=== PATIENT | male | born 1960 | race Caucasian/White ===

== ENCOUNTER 2017-09-16 13:02 | Emergency (ER) | payer BC, OTHER ==
[2017-09-16 13:10] VITALS: BP 137/83; PULSE 94; TEMP 99.3; BMI 42.2
--- NOTE | 2017-09-16 13:47 | PDOC ---
History of Present Illness - General Chief Complaint: Cold Symptoms Stated Complaint: COLD Time Seen by Provider: 09/16/17 13:06 - History of Present Illness Initial Comments: 09/16/17 16:30 Chief complaint: Congestion, cough History of present illness: For several days the patient has had nasal congestion, sore throat, and cough. Subjective sensation of fever but did not take his temperature. He occasionally coughs up yellowish or brownish sputum. Review of systems: No chest pain, shortness of breath, abdominal pain, nausea, vomiting, diarrhea, visual or focal neurologic symptoms, unsteadiness of gait, urinary tract symptoms. Past medical history: Van-xdzklcz-pnkmuqxqp diabetes for approximately 10 years , sugars controlled in the 100-200 range on oral medications, no diabetic complications known. Asthma, maintained on home nebulizer and steroid/ bronchodilator polyps. No recent exacerbations. No recent wheezing. Recurrent sinusitis, prior sinus surgery. 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 Heavy smoker until approximately one year ago, when he quit. Occasional social alcohol. No drugs Family history: Reviewed and noncontributory including pulmonary disease, early coronary artery disease, metabolic disease including diabetes, and cancer Physical exam: Alert oriented 3 moderately obese no acute distress cooperative Temperature 99.3, remainder vital signs normal HEENT: Marked nasal congestion, mild tenderness over the ethmoid sinuses, ears clear, throat mildly injected without exudate swelling or mass Neck supple without bruit mass or nodes Chest clear with full breath sounds throughout bilaterally, no wheezes rales or rhonchi. No tachypnea or dyspnea CV S1 and S2 distant without murmur rub or gallop pulses full and symmetric no JVD or edema Abdomen soft nontender without mass or organomegaly no CVAT Extremities no CCE Skin clear, no rash, adequate turgor and wet mucous membranes Neurological intact Impression: Recurrent sinusitis. No sign of pneumonia or bronchitis. Nontoxic in appearance Plan: Antibiotics and decongestant. Rest, stay out of the cold, and follow-up with symptoms progress or there is no improvement. 3 days. Fully ambulatory and in no significant pain or other distress upon discharge with his . Past History - Past Medical History Allergies/Adverse Reactions: Allergies Allergy/AdvReac Type Severity Reaction Status Date / Time Penicillins Allergy Verified 09/16/17 13:03 DUST MITES Allergy Uncoded 09/16/17 13:03 ROACHES Allergy Uncoded 09/16/17 13:03 Home Medications: Ambulatory Orders Aspirin 81 mg PO DAILY 01/05/13 Cefuroxime Axetil [Ceftin -] 500 mg PO Q12H #14 tablet 09/16/17 Guaifenesin AC [Robitussin-AC] 1 - 2 tsp PO TID PRN #90 ml MDD 6 09/16/17 Anemia: No Asthma: Yes Cancer: No Cardiac Disorders: No CVA: No COPD: No CHF: No DVT: No Dementia: No Diabetes: Yes GI Disorders: No Disorders: No HTN: Yes Hypercholesterolemia: Yes Liver Disease: No Seizures: No Thyroid Disease: No - Surgical History Appendectomy: Yes Orthopedic Surgery: Yes (knee arthroscopy) - Suicide/Smoking/Psychosocial Hx Smoking Status: No Smoking History: Former smoker Have you smoked in the past 12 months: No Number of Cigarettes Smoked Daily: 40 Information on smoking cessation initiated: No 'Breaking Loose' booklet given: 11/11/12 Hx Alcohol Use: No Drug/Substance Use Hx: No Substance Use Type: None Hx Substance Use Treatment: No *Physical Exam - Vital Signs Last Vital Signs Temp Pulse Resp BP Pulse Ox 99.3 F 94 H 20 137/83 96 09/16/17 13:02 09/16/17 13:02 09/16/17 13:02 09/16/17 13:02 09/16/17 13:02 *DC/Admit/Observation/Transfer Diagnosis at time of Disposition: Sinusitis Qualifiers: Sinusitis location: unspecified location Chronicity: acute Recurrence: recurrent Qualified Code(s): J01.91 - Acute recurrent sinusitis, unspecified - Discharge Dispostion Disposition: HOME Condition at time of disposition: Stable Admit: No - Prescriptions Prescriptions: Cefuroxime Axetil [Ceftin -] 500 mg PO Q12H #14 tablet Guaifenesin AC [Robitussin-AC] 1 - 2 tsp PO TID PRN #90 ml MDD 6 PRN Reason: Cough - Referrals Referrals: Maikol Mujica MD [Staff Physician] - - Patient Instructions Printed Discharge Instructions: DI for Sinusitis - Post Discharge Activity Forms/Work/School Notes: Back to Work
== END 2017-09-16 13:54 | disposition home or self-care (01) ==
LOC: FER 13:02
DX: J01.91 Acute recurrent sinusitis, unspecified (principal); I10 Essential (primary) hypertension; E11.9 Type 2 diabetes mellitus without complications; E78.00 Pure hypercholesterolemia, unspecified; J45.909 Unspecified asthma, uncomplicated; Z79.82 Long term (current) use of aspirin; Z79.84 Long term (current) use of oral hypoglycemic drugs; Z88.0 Allergy status to penicillin; Z91.048 Other nonmedicinal substance allergy status; Z87.891 Personal history of nicotine dependence
CPT/HCPCS: 99282-25

== ENCOUNTER 2018-09-15 10:59 | Emergency (ER) | payer BC, OTHER ==
[2018-09-15 11:05] VITALS: TEMP 98.4; BMI 40.2
--- NOTE | 2018-09-15 11:17 | PDOC ---
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 He sony his left lower back as well. He has pain in the left sacrum and left hip, no midline pain, and initially had pain in his right knee but this has resolved. Review of systems: Denies falling. Denies pain or injury to the head neck chest abdomen or other extremities. Remainder systems reviewed and negative Past medical history: Yel-xbtpoje-shkjjmgcx diabetes, elevated cholesterol, bicuspid aortic valve with small aneurysm of the aorta. Social/family history reviewed and noncontributory Physical exam: Alert and oriented well-developed well-nourished no acute distress cheerful and cooperative. He is ambulating well without impairment Afebrile, vital signs stable Head atraumatic. PERRLA. Fundi benign. ENT clear Neck without tenderness or deformity, full range of motion without pain Chest clear bilaterally. No rib cage tenderness or deformity CV regular without murmur rub or gallop pulses full and symmetric no JVD or edema no bruits Abdomen soft nontender without mass or organomegaly. No hernias. Extremities: Full range of motion of both hips. No visible or palpable trauma or limited range of motion to either lower extremity. Pulses full and symmetric. No distal sensory or motor deficits. Mild tenderness over the left sacrum and iliac crest without palpable deformity , swelling, erythema, heat, or other sign of inflammation Neurological C2 to 12 intact. Strength full and symmetric. No focal sensory or motor deficits. Gait stable and unimpaired Impression: Probable low back strain, left sacral region, rule out injury to left hip Plan: X-ray of hip, symptomatic treatment, rest, and follow-up if pain persists or other symptoms develop. Past History - Past Medical History Allergies/Adverse Reactions: Allergies Allergy/AdvReac Type Severity Reaction Status Date / Time Penicillins Allergy Verified 09/15/18 11:09 pramipexole [From Mirapex] AdvReac Intermediate Swelling Verified 09/15/18 11:09 DUST MITES Allergy Uncoded 09/15/18 11:09 ROACHES Allergy Uncoded 09/15/18 11:09 Home Medications: Ambulatory Orders Aspirin 81 mg PO DAILY 01/05/13 Albuterol 0.083% Nebulizer Mona [Ventolin 0.083% Nebulizer Soln -] 1 neb NEB PRN PRN 09/15/18 Metoprolol Tartrate 25 mg PO DAILY 09/15/18 Tiotropium [place] [Spiriva] 1 inh PO BID 09/15/18 Topiramate 75 mg PO BID 09/15/18 Vasepa 0 mg PO BID 09/15/18 traMADol HCL [Ultram -] 50 mg PO Q6H PRN #15 tablet MDD 4 09/15/18 Anemia: No Asthma: Yes Cancer: No Cardiac Disorders: No CVA: No COPD: No CHF: No DVT: No Dementia: No Diabetes: Yes GI Disorders: No Disorders: No HTN: Yes Hypercholesterolemia: Yes Liver Disease: No Seizures: Yes Thyroid Disease: No - Surgical History Appendectomy: Yes Orthopedic Surgery: Yes (knee arthroscopy) - Suicide/Smoking/Psychosocial Hx Smoking Status: No Smoking History: Former smoker Have you smoked in the past 12 months: No Number of Cigarettes Smoked Daily: 40 If you are a former smoker, when did you quit?: 2013 Information on smoking cessation initiated: No 'Breaking Loose' booklet given: 11/11/12 Hx Alcohol Use: No Drug/Substance Use Hx: No Substance Use Type: None Hx Substance Use Treatment: No *Physical Exam - Vital Signs Last Vital Signs Temp Pulse Resp BP Pulse Ox 98.4 F 79 16 124/82 98 09/15/18 11:00 09/15/18 11:00 09/15/18 11:00 09/15/18 11:00 09/15/18 11:00 Medical Decision Making - Medical Decision Making 09/15/18 12:52 X-ray negative Patient much improved with Toradol. More mobile, ambulating well Rest, heat, and continue medication. Follow-up if no improvement. Fully ambulatory and in no significant pain or other distress upon discharge with to follow-up as directed *DC/Admit/Observation/Transfer Diagnosis at time of Disposition: Lumbosacral strain Qualifiers: Encounter type: initial encounter Qualified Code(s): S39.012A - Strain of muscle, fascia and tendon of lower back, initial encounter - Discharge Dispostion Disposition: HOME Condition at time of disposition: Improved Decision to Admit order: No - Prescriptions Prescriptions: traMADol HCL [Ultram -] 50 mg PO Q6H PRN #15 tablet MDD 4 PRN Reason: Severe Pain - Referrals Referrals: Luis Fragoso MD [Staff Physician] - 1 week - Patient Instructions Printed Discharge Instructions: DI for Back Strain or Sprain Additional Instructions: Rest, heat, medication as directed. See Back Specialist if pain persists for reevaluation and further treatment 1 week. Avoid the sitting position is this will aggravate pain and spasm. - Post Discharge Activity Forms/Work/School Notes: Back to Work
[2018-09-15] MEDS ORDERED: KETOROLAC TROMETHAMINE 60 MG/2 ML VIAL IM ONE (11:36)
[2018-09-15] MEDS ORDERED: CYCLOBENZAPRINE HCL 10 MG TABLET (FP) PO ONE (11:37)
[2018-09-15] MEDS ORDERED: KETOROLAC TROMETHAMINE 60 MG/2 ML VIAL ONE (11:40)
[2018-09-15] MEDS ORDERED: CYCLOBENZAPRINE HCL 10 MG TABLET (FP) ONE (11:41)
[2018-09-15 13:19] VITALS: BP 115/73; PULSE 72
== END 2018-09-15 13:23 | disposition home or self-care (01) ==
LOC: FER 10:59
PROC: 3E0233Z Introduction of Anti-inflammatory into Muscle, Percutaneous Approach (ICD-10-PCS; principal; 2018-09-15)
DX: R05 Cough (principal); S39.012A Strain of muscle, fascia and tendon of lower back, initial encounter; X58.XXXA Exposure to other specified factors, initial encounter; Y93.89 Activity, other specified; Y92.524 Gas station as the place of occurrence of the external cause; I10 Essential (primary) hypertension; E11.9 Type 2 diabetes mellitus without complications; E78.00 Pure hypercholesterolemia, unspecified
CPT/HCPCS: 73523-TC-FY; 99282-25

== ENCOUNTER 2019-11-01 21:17 | Inpatient (IN) | payer BC, OTHER ==
[2019-11-01 22:20] LABS: BASO % 0.8 % (0-2.0); EOS % 5.2 % (0-4.5); HEMATOCRIT 45.5 % (35.4-49); HEMOGLOBIN 15.2 GM/dl (11.7-16.9); LYMPH % 50.2 % (8-40); MCH 30.1 pg (25.7-33.7); MCHC 33.4 g/dl (32.0-35.9); MEAN CELL VOLUME 90.4 fl (80-96); MEAN PLT VOLUME 9.6 fl (7.5-11.1); NEUT % 36.8 % (42.8-82.8); PLATELET COUNT 232 K/MM3 (134-434); RBC 5.04 M/mm3 (4.00-5.60); RDW 12.8 % (11.9-15.9); WHITE BLOOD COUNT 10.6 K/mm3 (4.0-10.8)
[2019-11-01 22:34] LABS: ALBUMIN 4.2 g/dl (3.4-5.0); BILIRUBIN,TOTAL 0.7 mg/dl (0.2-1); CALCIUM 9.8 mg/dl (8.5-10); CREATININE 1.6 mg/dl (0.55-1.3); POTASSIUM 3.1 mmol/L (3.5-5.1); TOT PROT 7.4 g/dl (6.4-8.2)
--- NOTE | 2019-11-01 23:04 | PDOC ---
Documentation entered by Brittney Bashir SCRIBE, acting as scribe for Brenda Tidwell MD. Brenda Tidwell MD: This documentation has been prepared by the Mckay remy Brenda, SCRIBE, under my direction and personally reviewed by me in its entirety. I confirm that the documentation accurately reflects all work, treatment, procedures, and medical decision making performed by me. History of Present Illness - General Chief Complaint: Respiratory Stated Complaint: BILATERAL PNUEMONIA History Source: Patient Exam Limitations: No Limitations - History of Present Illness Initial Comments: 11/01/19 22:42 The patient is a 59 year old male, with a significant PMH of asthma, Non-insulin -dependent diabetes, elevated cholesterol, bicuspid aortic valve with small aneurysm of the aorta who presents to the emergency department sent by his PCP for abnormal X-ray images. As per patient he began to feel flu-like symptoms at the end of August after receiving the flu-shot. Patient reports he has been feeling sick since then, mainly complaining of a productive cough of green phlegm that has been constant since the end of August, along with shortness of breath. Patient reports that he saw his PCP last week and had an outpatient Xray done. He reports that his PCP called him today advising him to go to the ED for a work-up, due to abnormal Xray results. The patient denies headache and dizziness. Denies nausea, vomiting, diarrhea and constipation. Denies any urinary symptoms. Allergies: NKA Past surgical history: Appendectomy, Knee arthroscopy Social history: Quit smoking 3 years ago. PCP: Lina Pacheco Cards: [place] Past History - Past Medical History Allergies/Adverse Reactions: Allergies Allergy/AdvReac Type Severity Reaction Status Date / Time mite-Dermatophagoides Allergy Verified 11/02/19 02:02 farinae, mamadou DUST MITES Allergy Uncoded 09/15/18 11:09 ROACHES Allergy Uncoded 09/15/18 11:09 Home Medications: Ambulatory Orders Albuterol Sulfate Inhaler - [Ventolin Hfa Inhaler -] 1 - 2 inh PO QID 11/02/19 Albuterol Sulfate [Proair Hfa] 8.5 gm IH DAILY 11/02/19 Aspirin 81 mg PO DAILY 11/02/19 Atorvastatin Ca [Lipitor] 40 mg PO HS 11/02/19 Budesonide/Formeterol Fumarate [SYMBICORT 160/4.5mcg -] 1 inh PO DAILY 11/02/19 Cholecalciferol (Vitamin D3) [Vitamin D3 -] 500 unit PO DAILY 11/02/19 Furosemide [Lasix] 80 mg PO DAILY 11/02/19 Glipizide [Glipizide ER] 10 mg PO DAILY 11/02/19 Icosapent Ethyl [Vascepa] 2 gm PO BID 11/02/19 Metformin HCl [Glucophage] 1,000 mg PO DAILY 11/02/19 Metoprolol Succinate [Toprol Xl] 25 mg PO DAILY 11/02/19 Salmeterol/Fluticasone [Advair 100Mcg/50Mcg -] 1 inh PO BID 11/02/19 Topiramate 150 mg PO HS 11/02/19 Anemia: No Asthma: Yes Cancer: No Cardiac Disorders: No CVA: No COPD: No CHF: No DVT: No Dementia: No Diabetes: Yes GI Disorders: No Disorders: No HTN: Yes Hypercholesterolemia: Yes Liver Disease: No Seizures: Yes Thyroid Disease: No - Surgical History Appendectomy: Yes Orthopedic Surgery: Yes (knee arthroscopy) - Psycho Social/Smoking Cessation Hx Smoking Status: No Smoking History: Former smoker Have you smoked in the past 12 months: No Number of Cigarettes Smoked Daily: 40 If you are a former smoker, when did you quit?: 2012 'Breaking Loose' booklet given: 11/11/12 Hx Alcohol Use: No Drug/Substance Use Hx: No Substance Use Type: None Hx Substance Use Treatment: No Review of Systems - Review of Systems Able to Perform ROS?: Yes Comments:: 11/01/19 22:42 GENERAL/CONSTITUTIONAL: No weakness. HEAD, EYES, EARS, NOSE AND THROAT: No change in vision. No ear pain or discharge. No sore throat. CARDIOVASCULAR: No chest pain or shortness of breath. RESPIRATORY: (+) Productive cough. (+) SOB. No wheezing or hemoptysis. GASTROINTESTINAL: No nausea, vomiting, diarrhea or constipation. GENITOURINARY: No dysuria, frequency, or change in urination. MUSCULOSKELETAL: No joint or muscle swelling or pain. No neck or back pain. SKIN: No rash NEUROLOGIC: No headache, vertigo, loss of consciousness, or change in strength/ sensation. ENDOCRINE: No increased thirst. No abnormal weight change. HEMATOLOGIC/LYMPHATIC: No anemia, easy bleeding, or history of blood clots. ALLERGIC/IMMUNOLOGIC: No hives or skin allergy. *Physical Exam - Physical Exam 11/01/19 22:43 GENERAL: Awake, alert, and fully oriented, in no acute distress HEAD: No signs of trauma EYES: PERRLA, EOMI, sclera anicteric, conjunctiva clear ENT: Auricles normal inspection, hearing grossly normal, nares patent, oropharynx clear without exudates. Moist mucosa NECK: Normal ROM, supple, no lymphadenopathy, JVD, or masses LUNGS: Bilateral inspiratory crackles at the bases, left greater than right HEART: Regular rate and rhythm, normal S1 and S2, no murmurs, rubs or gallops ABDOMEN: Soft, nontender, normoactive bowel sounds. No guarding, no rebound. No masses EXTREMITIES: Normal range of motion, trace ankle edema bilaterally. No clubbing or cyanosis. No cords, erythema, or tenderness NEUROLOGICAL: Cranial nerves II through XII grossly intact. Normal speech, normal gait SKIN: Warm, Dry, normal turgor, no rashes or lesions noted. ED Treatment Course - LABORATORY CBC & Chemistry Diagram: 11/02/19 07:35 11/02/19 07:35 Medical Decision Making - Medical Decision Making 11/02/19 00:19 As noted above, this 59-year-old man with a history of DM, asthma, HTN/HLD presents with several week history of cough productive of dark greenish sputum. He had been seen by his PMD, Dr. Pacheco late last week and had chest x- ray performed on 10/29/2019. This image revealed bilateral patchy infiltrates. Patient was contacted by PMD today and presents now for work-up. Exam as noted Laboratory evaluation notable for normal CBC; white blood cell count normal at 10,000 with 37% neutrophils and 50% lymphocytes Chemistry profile notable for potassium 3.1 with BUN of 55 and creatinine of 1.6. No clear previous history of renal insufficiency Troponin is not elevated Chest x-ray again shows bilateral patchy interstitial infiltrates. Rocephin 1 gram IV and Azithromycin 500 mg IV given . 40 meq KDur PO given Case discussed with FREDA Abbasi . Pt will be admitted to [facility], Dr. Viveros Nasopharyngeal swab fo Influenza pending Discharge - Discharge Information Problems reviewed: Yes Clinical Impression/Diagnosis: Bilateral pneumonia Qualifiers: Pneumonia type: due to unspecified organism Lung location: lower lobe of lung Qualified Code(s): J18.9 - Pneumonia, unspecified organism Condition: Stable - Admission Yes - Follow up/Referral - Patient Discharge Instructions - Post Discharge Activity
[2019-11-02] MEDS ORDERED: CEFTRIAXONE 1 GM in DEXTROSE 5%-WATER - 100 ML IVPB ONE (00:16)
[2019-11-02] MEDS ORDERED: AZITHROMYCIN IVPB 500 MG in DEXTROSE 5%-WATER - 250 ML IVPB ONE (00:17)
[2019-11-02] MEDS ORDERED: AZITHROMYCIN 500 MG VIAL IVPB ONE (00:23)
[2019-11-02] MEDS ORDERED: cefTRIAXone SODIUM 1 GM VIAL ONE (00:23)
[2019-11-02] MEDS ORDERED: POTASSIUM CHLORIDE TABS 20 MEQ TABLET.ER (FP) PO ONE (01:24)
[2019-11-02] MEDS ORDERED: ALBUTEROL SO4 0.083% IH SOL 2.5 MG/3 ML VIAL.NEB. NEB PRN (02:29)
[2019-11-02 03:02] VITALS: BMI 40.4
[2019-11-02] MEDS ORDERED: metFORMIN HCL 500 MG TABLET (FP) PO SCH (07:15)
[2019-11-02] MEDS ORDERED: glipiZIDE-XL 5 MG TAB.ER.24 PO SCH (07:45)
[2019-11-02 08:14] LABS: BASO % 0.7 % (0-2.0); EOS % 5.7 % (0-4.5); HEMATOCRIT 40.3 % (35.4-49); HEMOGLOBIN 13.8 GM/dl (11.7-16.9); LYMPH % 45.9 % (8-40); MCH 30.6 pg (25.7-33.7); MCHC 34.2 g/dl (32.0-35.9); MEAN CELL VOLUME 89.5 fl (80-96); MEAN PLT VOLUME 9.9 fl (7.5-11.1); MONO % 5.3 % (3.8-10.2); NEUT % 42.4 % (42.8-82.8); PLATELET COUNT 207 K/MM3 (134-434); RDW 12.8 % (11.9-15.9); WHITE BLOOD COUNT 9.7 K/mm3 (4.0-10.8)
[2019-11-02 08:16] LABS: CALCIUM 9.2 mg/dl (8.5-10); CREATININE 1.3 mg/dl (0.55-1.3); POTASSIUM 3.5 mmol/L (3.5-5.1)
[2019-11-02] MEDS: TOPIRAMATE 25 MG TABLET (FP) PO SCH (09:48)
[2019-11-02] MEDS ORDERED: BUDESONIDE/FORMETEROL FUMARATE 160/4.5 mcg INHALER IH SCH (10:00)
[2019-11-02] MEDS ORDERED: glipiZIDE-XL 10 MG TAB.ER.24 (FP) PO SCH (10:00)
[2019-11-02] MEDS: metoPROLOL SUCCINATE 25 MG TAB.SR.24H (FP) PO SCH (10:27)
[2019-11-02] MEDS: FUROSEMIDE 40 MG TABLET (FP) PO SCH (10:27)
[2019-11-02] MEDS: ASPIRIN 81 MG CHEWABLE TABLETS PO SCH (10:27)
--- NOTE | 2019-11-02 11:13 | EKG ---
Test Reason : Blood Pressure : / mmHG Vent. Rate : 088 BPM Atrial Rate : 088 BPM P-R Int : 164 ms QRS Dur : 120 ms QT Int : 392 ms P-R-T Axes : 078 013 -13 degrees QTc Int : 474 ms NORMAL SINUS RHYTHM INCOMPLETE LEFT BUNDLE BRANCH BLOCK BORDERLINE ECG NO PREVIOUS ECGS AVAILABLE Confirmed by KEIKO BAKER MD ([id number]) on 11/02/2019 11:12:36 AM Referred By: CARLOS STEWART Confirmed By:KEIKO BAKER MD
[2019-11-02] MEDS: INSULIN (NOVOLOG) ASPART 100 UNITS/ML 10ML VIAL SQ SCH ×3 (12:59→21:22)
[2019-11-02] MEDS: FLUTICASONE/SALMETEROL 100 MCG/50 MCG DISKUS IH SCH ×2 (13:30→21:22)
[2019-11-02] MEDS ORDERED: PT OWN MED DRAWER 7, Y5N ONE ×2 (14:44→20:30)
--- NOTE | 2019-11-02 18:00 | CON.CARD ---
Cardiology Consult (text) - Consultation Consultation Note: cc: abnl cxr hpi: 59 m hx asthma, htn, hld, dchf, bicuspid av, dm sent by pmd for abnl cxr. For past month or so pt has cough, uri sxs, sob. No cp pnd orthopnea le edema loc dizzy. pmh: per hpi psh: appendectomy social: ex tob fam: no premature cad, scd ros: per hpi; all others nl meds: Home Medications Medication Instructions Recorded Albuterol Sulfate Inhaler - 1 - 2 inh PO QID 11/02/19 [Ventolin Hfa Inhaler -] Albuterol Sulfate [Proair Hfa] 8.5 gm IH DAILY 11/02/19 Aspirin 81 mg PO DAILY 11/02/19 Atorvastatin Ca [Lipitor] 40 mg PO HS 11/02/19 Budesonide/Formeterol Fumarate 1 inh PO DAILY 11/02/19 [SYMBICORT 160/4.5mcg -] Cholecalciferol (Vitamin D3) 500 unit PO DAILY 11/02/19 [Vitamin D3 -] Furosemide [Lasix] 80 mg PO DAILY 11/02/19 Glipizide [Glipizide ER] 10 mg PO DAILY 11/02/19 Icosapent Ethyl [Vascepa] 2 gm PO BID 11/02/19 Metformin HCl [Glucophage] 1,000 mg PO DAILY 11/02/19 Metoprolol Succinate [Toprol Xl] 25 mg PO DAILY 11/02/19 Salmeterol/Fluticasone [Advair 1 inh PO BID 11/02/19 100Mcg/50Mcg -] Topiramate 150 mg PO HS 11/02/19 pe: Vital Signs Period Temp Pulse Resp BP Sys/King Pulse Ox Last 24 Hr 97.9 F-98.3 F 69-88 16-19 96-112/62-69 94-96 nad no jvd rrr s1s2 no mrg cta bl nl eff aao3 no le e/c/c abd nt nd pos bs no jaundice diaphoreis pos dp pt no carotid bruits Laboratory Last Values WBC 9.7 K/mm3 (4.0-10.8) 11/02/19 07:35 RBC 4.50 M/mm3 (4.00-5.60) 11/02/19 07:35 Hgb 13.8 GM/dl (11.7-16.9) 11/02/19 07:35 Hct 40.3 % (35.4-49) 11/02/19 07:35 MCV 89.5 fl (80-96) 11/02/19 07:35 MCH 30.6 pg (25.7-33.7) 11/02/19 07:35 MCHC 34.2 g/dl (32.0-35.9) 11/02/19 07:35 RDW 12.8 % (11.9-15.9) 11/02/19 07:35 Plt Count 207 K/MM3 (134-434) 11/02/19 07:35 MPV 9.9 fl (7.5-11.1) 11/02/19 07:35 Absolute Neuts (auto) 4.1 K/mm3 11/02/19 07:35 Neutrophils % 42.4 % (42.8-82.8) L 11/02/19 07:35 Lymphocytes % 45.9 % (8-40) H 11/02/19 07:35 Monocytes % 5.3 % (3.8-10.2) 11/02/19 07:35 Eosinophils % 5.7 % (0-4.5) H 11/02/19 07:35 Basophils % 0.7 % (0-2.0) 11/02/19 07:35 Sodium 134 mmol/L (136-145) L 11/02/19 07:35 Potassium 3.5 mmol/L (3.5-5.1) 11/02/19 07:35 Chloride 101 mmol/L (98-107) 11/02/19 07:35 Carbon Dioxide 26 mmol/L (21-32) 11/02/19 07:35 Anion Gap 7 MMOL/L (8-16) L 11/02/19 07:35 BUN 47.0 mg/dl (7-18) H 11/02/19 07:35 Creatinine 1.3 mg/dl (0.55-1.3) 11/02/19 07:35 Est GFR (CKD-EPI)AfAm 70.20 11/02/19 07:35 Est GFR (CKD-EPI)NonAf 60.57 11/02/19 07:35 POC Glucometer 232 UNITS (80-120) 11/02/19 12:52 Random Glucose 170 mg/dl (74-106) H 11/02/19 07:35 Hemoglobin A1c % 8.9 % (4.2-6.3) H 11/02/19 07:35 Lactic Acid 1.9 mmol/L (0.4-2.0) 11/01/19 21:45 Calcium 9.2 mg/dl (8.5-10) 11/02/19 07:35 Total Bilirubin 0.7 mg/dl (0.2-1) 11/01/19 21:45 AST 22 U/L (15-37) 11/01/19 21:45 ALT 22 U/L (13-61) 11/01/19 21:45 Alkaline Phosphatase 51 U/L (45-117) 11/01/19 21:45 Creatine Kinase 83 U/L (26-308) 11/01/19 21:45 Troponin I < 0.03 ng/ml (0.00-0.05) 11/01/19 21:54 B-Natriuretic Peptide 30.4 pg/ml (5-125) 11/01/19 23:00 Total Protein 7.4 g/dl (6.4-8.2) 11/01/19 21:45 Albumin 4.2 g/dl (3.4-5.0) 11/01/19 21:45 Influenza A (Rapid) Negative (Negative) 11/02/19 02:00 Influenza B (Rapid) Negative (Negative) 11/02/19 02:00 ecg: sr nl intervals no ischemic changes ct chest: no chf, +ILD a/p: 59 m hx asthma, htn, hld, dchf, bicuspid av, dm sent by pmd for abnl cxr. pna, ILD: -abx per primary -pulm consult pending -echo pending htn: -cont bb hld: -cont statin chronic chf: -stable vol status, cont po lasix bicuspid av: -check echo
[2019-11-02] MEDS: CEFTRIAXONE 1 GM in SODIUM CHLORIDE 50 ML IVPB SCH (21:22)
[2019-11-02] MEDS: AZITHROMYCIN IVPB 500 MG in SODIUM CHLORIDE 250 ML IVPB SCH (21:23)
[2019-11-02] MEDS: ATORVASTATIN CA 40 MG TABLET (FP) PO SCH (21:23)
[2019-11-02] MEDS ORDERED: ALBUTEROL SO4 2.5/IPRATROPIUM 0.5 INH SOL 3 ML VIAL.NEB. NEB PRN (23:31)
--- NOTE | 2019-11-02 23:39 | HP ---
Documentation entered by Lina Payne SCRIBE, acting as scribe for Lizzette Cox NP. CHIEF COMPLAINT: PCP: Lina Pacheco Cards: Shelia HISTORY OF PRESENT ILLNESS: Patient is a 59 year-old male with a PMH significant for HTN, HLD, Type II NIDDM , asthma, bicuspid aortic valve, and seizure disorder. Patient reports feeling ill since July 2019 when he experienced flu-like symptoms. Since that time he has become increasingly short of breath and dyspneic on exertion. He has become acutely worse over the past several weeks, has had o sleep sitting up and is unable to climb stairs at work without becoming profoundly short of breath. Patient went to see his PCP who ordered an xray. Patient received a call from PCP advising him to come to the ED. Denies fever, sweats, chills. Denies chest pain, palpitations, lightheadedness, lower extremity edema. ER course was notable for: (1) BUN 55, Cr 1.6 (2) SpO2 96% room air Recent Travel: None reported PAST MEDICAL HISTORY: Hypertension Hyperlipidemia Type II NIDDM Asthma Bicuspid aortic valve with small aneurysm of the aorta Seizure disorder PAST SURGICAL HISTORY: Appendectomy Knee Arthroscopy Tonsillitis Family History: Father of cancer at the age of 72. Mother is currently a diabetic and has bicuspid aortic valve with small aneurysm. 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 Allergies mite-Dermatophagoides farinae, mamadou Allergy (Verified 11/02/19 02:02) FROM UNCODED "DUST MITES" ALLERGY DUST MITES Allergy (Uncoded 09/15/18 11:09) ROACHES Allergy (Uncoded 09/15/18 11:09) HOME MEDICATIONS: Home Medications Medication Instructions Recorded Albuterol Sulfate Inhaler - 1 - 2 inh PO QID 11/02/19 [Ventolin Hfa Inhaler -] Albuterol Sulfate [Proair Hfa] 8.5 gm IH DAILY 11/02/19 Aspirin 81 mg PO DAILY 11/02/19 Atorvastatin Ca [Lipitor] 40 mg PO HS 11/02/19 Budesonide/Formeterol Fumarate 1 inh PO DAILY 11/02/19 [SYMBICORT 160/4.5mcg -] Cholecalciferol (Vitamin D3) 500 unit PO DAILY 11/02/19 [Vitamin D3 -] Furosemide [Lasix] 80 mg PO DAILY 11/02/19 Glipizide [Glipizide ER] 10 mg PO DAILY 11/02/19 Icosapent Ethyl [Vascepa] 1 gm PO DAILY 11/02/19 Metformin HCl [Glucophage] 1,000 mg PO DAILY 11/02/19 Metoprolol Succinate [Toprol Xl] 25 mg PO DAILY 11/02/19 Salmeterol/Fluticasone [Advair 1 inh PO BID 11/02/19 100Mcg/50Mcg -] Topiramate 50 mg PO DAILY 11/02/19 REVIEW OF SYSTEMS CONSTITUTIONAL: +weight gain Absent: fever, chills, diaphoresis, generalized weakness, malaise, loss of appetite, HEENT: Absent: rhinorrhea, nasal congestion, throat pain, throat swelling, difficulty swallowing, mouth swelling, ear pain, eye pain, visual changes CARDIOVASCULAR: Absent: chest pain, syncope, palpitations, irregular heart rate, lightheadedness , peripheral edema RESPIRATORY: +shortness of breath +dyspea with exertion +orthopnea Absent: cough,wheezing, stridor, hemoptysis GASTROINTESTINAL: Absent: abdominal pain, abdominal distension, nausea, vomiting, diarrhea, constipation, melena, hematochezia GENITOURINARY: Absent: dysuria, frequency, urgency, hesitancy, hematuria, flank pain, genital pain MUSCULOSKELETAL: Absent: myalgia, arthralgia, joint swelling, back pain, neck pain SKIN: Absent: rash, itching, pallor HEMATOLOGIC/IMMUNOLOGIC: Absent: easy bleeding, easy bruising, lymphadenopathy, frequent infections ENDOCRINE: Absent: unexplained weight gain, unexplained weight loss, heat intolerance, cold intolerance NEUROLOGIC: Absent: headache, focal weakness or paresthesias, dizziness, unsteady gait, seizure, mental status changes, bladder or bowel incontinence PSYCHIATRIC: Absent: anxiety, depression, suicidal or homicidal ideation, hallucinations. PHYSICAL EXAMINATION Vital Signs - 24 hr 11/01/19 11/02/19 21:55 02:44 Temperature 98.3 F 97.9 F Pulse Rate 88 87 Respiratory 16 18 Rate Blood Pressure 112/69 104/68 O2 Sat by Pulse 94 L 95 Oximetry (%) GENERAL: Awake, alert, and fully oriented, in no acute distress. LUNGS: Breath sounds equal, clear to auscultation bilaterally. No wheezes, and no crackles. No accessory muscle use. HEART: Regular rate and rhythm, normal S1 and S2 ABDOMEN: Soft, nontender, not distended, obese UPPER EXTREMITIES: 2+ pulses, warm, well-perfused. No cyanosis. No clubbing. No peripheral edema. LOWER EXTREMITIES: 2+ pulses, warm, well-perfused. No calf tenderness. No peripheral edema. NEUROLOGICAL: Cranial nerves II-XII intact. Normal speech. Normal gait. PSYCHIATRIC: Cooperative. Good eye contact. Appropriate mood and affect. SKIN: Warm, dry, normal turgor Laboratory Results - last 24 hr 11/01/19 11/01/19 11/01/19 21:45 21:45 21:45 WBC 10.6 RBC 5.04 Hgb 15.2 Hct 45.5 MCV 90.4 MCH 30.1 MCHC 33.4 RDW 12.8 Plt Count 232 MPV 9.6 Absolute Neuts (auto) 3.9 Neutrophils % 36.8 L Lymphocytes % 50.2 H Monocytes % 7.0 Eosinophils % 5.2 H Basophils % 0.8 Sodium 135 L Potassium 3.1 L Chloride 100 Carbon Dioxide 25 Anion Gap 10 BUN 55.0 H Creatinine 1.6 H Est GFR (CKD-EPI)AfAm 54.61 Est GFR (CKD-EPI)NonAf 47.12 POC Glucometer Random Glucose 201 H Lactic Acid 1.9 Calcium 9.8 Total Bilirubin 0.7 AST 22 ALT 22 Alkaline Phosphatase 51 Creatine Kinase 83 Troponin I B-Natriuretic Peptide Total Protein 7.4 Albumin 4.2 Influenza A (Rapid) Influenza B (Rapid) 11/01/19 11/01/19 11/02/19 21:54 23:00 02:00 WBC RBC Hgb Hct MCV MCH MCHC RDW Plt Count MPV Absolute Neuts (auto) Neutrophils % Lymphocytes % Monocytes % Eosinophils % Basophils % Sodium Potassium Chloride Carbon Dioxide Anion Gap BUN Creatinine Est GFR (CKD-EPI)AfAm Est GFR (CKD-EPI)NonAf POC Glucometer Random Glucose Lactic Acid Calcium Total Bilirubin AST ALT Alkaline Phosphatase Creatine Kinase Troponin I < 0.03 B-Natriuretic Peptide 30.4 Total Protein Albumin Influenza A (Rapid) Negative Influenza B (Rapid) Negative 11/02/19 06:52 WBC RBC Hgb Hct MCV MCH MCHC RDW Plt Count MPV Absolute Neuts (auto) Neutrophils % Lymphocytes % Monocytes % Eosinophils % Basophils % Sodium Potassium Chloride Carbon Dioxide Anion Gap BUN Creatinine Est GFR (CKD-EPI)AfAm Est GFR (CKD-EPI)NonAf POC Glucometer 151 Random Glucose Lactic Acid Calcium Total Bilirubin AST ALT Alkaline Phosphatase Creatine Kinase Troponin I B-Natriuretic Peptide Total Protein Albumin Influenza A (Rapid) Influenza B (Rapid) ASSESSMENT/PLAN 59 year-old male with a PMH significant for HTN, HLD, Type II NIDDM, asthma, bicuspid aortic valve, and seizure disorder. Admitted for SOB likely secondary to advancing interstitial lung disease. 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), daily vaping for past 3 years --11/02 CT chest: extensive chronic interstitial lung disease, marked in the RUL, worse since 2012; no definite evidence of pneumonia, CHF, or acute pathology --no fever, no leukocytosis, no wheezing, but elevated risk of infection, continue empiric azithro (day #1) and ceftriaxone (day #1) --satting well on room air; pre post ordered --continue Symbicort, Advair, duonebs PRN --pulmonary consult requested Type II NIDDM --HgbA1C 8.9 --Novolog sliding scale coverage Heart failure, NOS --Echo in am --continue home regimen PO lasix --on daily ASA --cardiology following Bicuspid aortic valve --check echo Elevated creatinine --Cr 1.6 in ED, this morning 1.3, continue to monitor Hypertension --continue ToprolXL Hyperlipidemia --continue atorvastatin Seizure disorder --stable --continue Topamax FEN Fluids: PO intake adequate Electrolytes: replete as indicated Nutrition: diabetic, low sodium DVT prophylaxis: subq heparin Dispo: continues to require inpatient care. Full code. Visit type - Emergency Visit Emergency Visit: Yes ED Registration Date: 11/02/19 Care time: The patient presented to the Emergency Department on the above date and was hospitalized for further evaluation of their emergent condition. - New Patient This patient is new to me today: Yes Date on this admission: 11/02/19 - Critical Care Critical Care patient: No Lizzette Cox NP: This documentation has been prepared by the Elmer remy Maria, SCRIBE, under my direction and personally reviewed by me in its entirety. I confirm that the documentation accurately reflects all work, treatment, procedures, and medical decision making performed by me.
[2019-11-03] MEDS ORDERED: LIDOCAINE 5% TOPICAL PATCH TP ONE (04:11)
[2019-11-03] MEDS: INSULIN (NOVOLOG) ASPART 100 UNITS/ML 10ML VIAL SQ SCH ×4 (06:56→21:16)
[2019-11-03] MEDS: HEPARIN NA (PORCINE) 5,000 UNITS/ML 1ML VIAL SQ SCH ×3 (06:57→21:16)
[2019-11-03] MEDS ORDERED: AZITHROMYCIN IVPB 500 MG/250 ML BAG IVPB SCH (10:00)
[2019-11-03] MEDS ORDERED: CEFTRIAXONE 1 G/50 ML PREMIX 50 ML IVPB SCH (10:00)
[2019-11-03] MEDS: metoPROLOL SUCCINATE 25 MG TAB.SR.24H (FP) PO SCH ×2 (10:15→10:18)
[2019-11-03] MEDS: OMEGA-3 ACID ETHYL ESTERS (FATTY-ACIDS) 1 GM CAPSULE (FP) PO SCH ×2 (10:18→21:17)
[2019-11-03] MEDS: ASPIRIN 81 MG CHEWABLE TABLETS PO SCH (10:18)
[2019-11-03] MEDS: TOPIRAMATE 25 MG TABLET (FP) PO SCH (10:18)
[2019-11-03] MEDS: FUROSEMIDE 40 MG TABLET (FP) PO SCH (10:18)
[2019-11-03] MEDS: FLUTICASONE/SALMETEROL 100 MCG/50 MCG DISKUS IH SCH ×2 (10:35→21:42)
--- NOTE | 2019-11-03 13:38 | PN ---
Documentation entered by Lina Payne SCRIBE, acting as scribe for Lizzette Cox NP. Physical Exam: SUBJECTIVE: Patient seen and examined oat bedside. Feeling better but had to sleep upright again last night. OBJECTIVE: Vital Signs Period Temp Pulse Resp BP Sys/King Pulse Ox Last 24 Hr 97.9 F-98.2 F 65-75 16-19 96-105/61-65 95-96 GENERAL: The patient is awake, alert, and fully oriented, in no acute distress. LUNGS:CTA, no wheezing. HEART: Regular rate and rhythm, S1, S2 ABDOMEN: Soft, nontender, nondistended, normoactive bowel sounds, no guarding, no rebound, no hepatosplenomegaly, no masses. EXTREMITIES: 2+ pulses, warm, well-perfused, no edema. NEUROLOGICAL: Cranial nerves II through XII grossly intact. Normal speech, gait not observed. SKIN: Warm, dry, normal turgor, no rashes or lesions noted Laboratory Results - last 24 hr 11/02/19 11/02/19 11/02/19 07:35 07:35 07:35 WBC 9.7 RBC 4.50 Hgb 13.8 Hct 40.3 MCV 89.5 MCH 30.6 MCHC 34.2 RDW 12.8 Plt Count 207 MPV 9.9 Absolute Neuts (auto) 4.1 Neutrophils % 42.4 L Lymphocytes % 45.9 H Monocytes % 5.3 Eosinophils % 5.7 H Basophils % 0.7 Sodium 134 L Potassium 3.5 Chloride 101 Carbon Dioxide 26 Anion Gap 7 L BUN 47.0 H Creatinine 1.3 Est GFR (CKD-EPI)AfAm 70.20 Est GFR (CKD-EPI)NonAf 60.57 POC Glucometer Random Glucose 170 H Hemoglobin A1c % 8.9 H Calcium 9.2 11/02/19 11/02/19 11/02/19 12:52 18:32 20:51 WBC RBC Hgb Hct MCV MCH MCHC RDW Plt Count MPV Absolute Neuts (auto) Neutrophils % Lymphocytes % Monocytes % Eosinophils % Basophils % Sodium Potassium Chloride Carbon Dioxide Anion Gap BUN Creatinine Est GFR (CKD-EPI)AfAm Est GFR (CKD-EPI)NonAf POC Glucometer 232 235 243 Random Glucose Hemoglobin A1c % Calcium 11/03/19 06:39 WBC RBC Hgb Hct MCV MCH MCHC RDW Plt Count MPV Absolute Neuts (auto) Neutrophils % Lymphocytes % Monocytes % Eosinophils % Basophils % Sodium Potassium Chloride Carbon Dioxide Anion Gap BUN Creatinine Est GFR (CKD-EPI)AfAm Est GFR (CKD-EPI)NonAf POC Glucometer 148 Random Glucose Hemoglobin A1c % Calcium Active Medications Generic Name Dose Route Start Last Admin Trade Name Freq PRN Reason Stop Dose Admin Albuterol/Ipratropium 1 amp 11/02/19 23:31 Duoneb - NEB Q4H PRN SHORTNESS OF BREATH Aspirin 81 mg 11/02/19 10:00 11/02/19 10:27 Asa - PO 81 mg DAILY NANDO Administration Atorvastatin Calcium 40 mg 11/02/19 22:00 11/02/19 21:23 Lipitor - PO 40 mg HS NANDO Administration Furosemide 80 mg 11/02/19 10:00 11/02/19 10:27 Lasix - PO 80 mg DAILY NANDO Administration Heparin Sodium (Porcine) 5,000 unit 11/03/19 06:00 11/03/19 06:57 Heparin - SQ 5,000 unit TID NANDO Administration Ceftriaxone Sodium 1 gm/ 50 mls @ 100 mls/hr 11/02/19 22:00 11/02/19 21:22 Sodium Chloride IVPB 100 mls/hr DAILY@2200 NANDO Administration Protocol Azithromycin 500 mg/ Sodium 250 mls @ 250 mls/hr 11/02/19 22:00 11/02/19 21: 23 Chloride IVPB 250 mls/hr DAILY@2200 NANDO Administration Insulin Aspart 0 units 11/02/19 11:00 11/03/19 06:56 Novolog Vial SQ Not Given ACHS NANDO Protocol Metoprolol Succinate 25 mg 11/02/19 10:00 11/02/19 10:27 Toprol Xl - PO 25 mg DAILY NANDO Administration [id number] Ethyl Esters 2 gm 11/03/19 10:00 Lovaza - PO BID NANDO Fluticasone/Salmeterol 1 puff 11/02/19 13:30 11/02/19 21:22 Advair 100mcg/50mcg - IH 1 puff BID NANDO Administration Topiramate 50 mg 11/02/19 10:00 11/02/19 09:48 Topamax - PO Not Given DAILY NANDO ASSESSMENT/PLAN: 59 year-old male with a PMH significant for HTN, HLD, Type II NIDDM, asthma, bicuspid aortic valve, and seizure disorder. Admitted for SOB likely secondary to advancing interstitial lung disease. 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), daily vaping for past 3 years --11/02 CT chest: extensive chronic interstitial lung disease, marked in the RUL, worse since 2012; no definite evidence of pneumonia, CHF, or acute pathology --no fever, no leukocytosis, no wheezing, but elevated risk of infection, continue empiric azithro (day #2) and ceftriaxone (day #2) --satting well on room air; pre post ordered, still not done --continue Symbicort, Advair, duonebs PRN --pulmonary consult requested Type II NIDDM --HgbA1C 8.9 --Novolog sliding scale coverage Heart failure, NOS --Echo done pending dictation --continue home regimen PO lasix --on daily ASA --cardiology following Bicuspid aortic valve --check echo Elevated creatinine --Cr 1.6 in ED, this morning 1.3, continue to monitor Hypertension --continue ToprolXL Hyperlipidemia --continue atorvastatin Seizure disorder --stable --continue Topamax FEN Fluids: PO intake adequate Electrolytes: replete as indicated Nutrition: diabetic, low sodium DVT prophylaxis: subq heparin Dispo: continues to require inpatient care. Full code. Visit type - Emergency Visit Emergency Visit: Yes ED Registration Date: 11/02/19 Care time: The patient presented to the Emergency Department on the above date and was hospitalized for further evaluation of their emergent condition. - New Patient This patient is new to me today: No - Critical Care Critical Care patient: No Lizzette Cox, [employer] OPERATOR: This documentation has been prepared by the Elmer remy Maria, SCRIBE, under my direction and personally reviewed by me in its entirety. I confirm that the documentation accurately reflects all work, treatment, procedures, and medical decision making performed by me.
--- NOTE | 2019-11-03 15:16 | PN ---
Progress Note (short form) - Note Progress Note: s: no chest pain, palps, dizziness, dyspnea. Current Medications Albuterol/Ipratropium (Duoneb -) 1 amp NEB Q4H PRN PRN Reason: SHORTNESS OF BREATH Aspirin (Asa -) 81 mg PO DAILY [facility] Last Admin: 11/03/19 10:18 Dose: 81 mg Atorvastatin Calcium (Lipitor -) 40 mg PO HS [facility] Last Admin: 11/02/19 21:23 Dose: 40 mg Furosemide (Lasix -) 80 mg PO DAILY [facility] Last Admin: 11/03/19 10:18 Dose: 80 mg Heparin Sodium (Porcine) (Heparin -) 5,000 unit SQ TID [facility] Last Admin: 11/03/19 14:35 Dose: 5,000 unit Ceftriaxone Sodium 1 gm/ (Sodium Chloride) 50 mls @ 100 mls/hr IVPB DAILY@2200 NANDO; Protocol Last Admin: 11/02/19 21:22 Dose: 100 mls/hr Azithromycin 500 mg/ Sodium (Chloride) 250 mls @ 250 mls/hr IVPB DAILY@2200 [facility] Last Admin: 11/02/19 21:23 Dose: 250 mls/hr Insulin Aspart (Novolog Vial) 0 units SQ ACHS [facility]; Protocol Last Admin: 11/03/19 11:40 Dose: 10 units Metoprolol Succinate (Toprol Xl -) 25 mg PO DAILY [facility] Last Admin: 11/03/19 10:18 Dose: 25 mg [id number] Ethyl Esters (Lovaza -) 2 gm PO BID [facility] Last Admin: 11/03/19 10:18 Dose: 2 gm Fluticasone/Salmeterol (Advair 100mcg/50mcg -) 1 puff IH BID [facility] Last Admin: 11/03/19 10:35 Dose: 1 puff Topiramate (Topamax -) 50 mg PO DAILY [facility] Last Admin: 11/03/19 10:18 Dose: 50 mg pe: Vital Signs Period Temp Pulse Resp BP Sys/King Pulse Ox Last 24 Hr 97.8 F-98.0 F 65-89 16-20 97-110/61-64 93-96 nad no jvd rrr s1s2 no mrg cta bl nl eff aao3 no le e/c/c abd nt nd pos bs no jaundice diaphoreis pos dp pt no carotid bruits ecg: sr nl intervals no ischemic changes ct chest: no chf, +ILD a/p: 59 m hx asthma, htn, hld, dchf, bicuspid av, dm sent by pmd for abnl cxr. pna, ILD: -abx per primary -pulm consult pending -echo pending htn: -cont bb hld: -cont statin chronic chf: -stable vol status, cont po lasix bicuspid av: -check echo
[2019-11-03] MEDS ORDERED: PT OWN MED DRAWER 7, Y5N ONE (21:05)
[2019-11-03] MEDS: ATORVASTATIN CA 40 MG TABLET (FP) PO SCH (21:16)
[2019-11-03] MEDS: CEFTRIAXONE 1 GM in SODIUM CHLORIDE 50 ML IVPB SCH (21:17)
[2019-11-03] MEDS: AZITHROMYCIN IVPB 500 MG in SODIUM CHLORIDE 250 ML IVPB SCH (21:42)
[2019-11-03] MEDS ORDERED: LIDOCAINE PATCH REMOVAL MC SCH (22:00)
[2019-11-04] MEDS: HEPARIN NA (PORCINE) 5,000 UNITS/ML 1ML VIAL SQ SCH ×2 (06:24→14:26)
[2019-11-04] MEDS: INSULIN (NOVOLOG) ASPART 100 UNITS/ML 10ML VIAL SQ SCH ×3 (07:26→17:01)
[2019-11-04 08:03] LABS: BASO % 0.7 % (0-2.0); EOS % 7.5 % (0-4.5); HEMATOCRIT 40.2 % (35.4-49); HEMOGLOBIN 13.8 GM/dl (11.7-16.9); MCH 30.8 pg (25.7-33.7); MCHC 34.3 g/dl (32.0-35.9); MEAN CELL VOLUME 89.8 fl (80-96); MEAN PLT VOLUME 10.1 fl (7.5-11.1); MONO % 6.7 % (3.8-10.2); NEUT % 32.1 % (42.8-82.8); PLATELET COUNT 205 K/MM3 (134-434); RBC 4.48 M/mm3 (4.00-5.60); RDW 12.8 % (11.9-15.9); WHITE BLOOD COUNT 6.9 K/mm3 (4.0-10.8)
[2019-11-04 08:22] LABS: ALBUMIN 3.5 g/dl (3.4-5.0); BILIRUBIN,TOTAL 0.7 mg/dl (0.2-1); CALCIUM 8.8 mg/dl (8.5-10); CREATININE 1.1 mg/dl (0.55-1.3); MAGNESIUM 1.9 mg/dL (1.8-2.4); POTASSIUM 3.5 mmol/L (3.5-5.1); TOT PROT 6.4 g/dl (6.4-8.2)
[2019-11-04] MEDS: TOPIRAMATE 25 MG TABLET (FP) PO SCH (09:47)
[2019-11-04] MEDS: FUROSEMIDE 40 MG TABLET (FP) PO SCH (09:48)
[2019-11-04] MEDS: OMEGA-3 ACID ETHYL ESTERS (FATTY-ACIDS) 1 GM CAPSULE (FP) PO SCH (09:48)
[2019-11-04] MEDS: ASPIRIN 81 MG CHEWABLE TABLETS PO SCH (09:48)
[2019-11-04] MEDS: metoPROLOL SUCCINATE 25 MG TAB.SR.24H (FP) PO SCH (09:48)
[2019-11-04] MEDS: FLUTICASONE/SALMETEROL 100 MCG/50 MCG DISKUS IH SCH (11:00)
[2019-11-04] MEDS ORDERED: TOPIRAMATE 100 MG TABLET PO ONE ×2 (11:05→11:50)
--- NOTE | 2019-11-04 11:32 | DS ---
Physical Exam: SUBJECTIVE: Patient seen and examined OBJECTIVE: Vital Signs Period Temp Pulse Resp BP Sys/King Pulse Ox Last 24 Hr 97.2 F-98.5 F 64-98 18-20 95-122/57-65 87-96 PHYSICAL EXAM GENERAL: Awake, alert, and fully oriented, in no acute distress. LUNGS: Breath sounds equal, clear to auscultation bilaterally. No wheezes, and no crackles. No accessory muscle use. HEART: Regular rate and rhythm, normal S1 and S2 ABDOMEN: Soft, nontender, not distended, obese UPPER EXTREMITIES: 2+ pulses, warm, well-perfused. No cyanosis. No clubbing. No peripheral edema. LOWER EXTREMITIES: 2+ pulses, warm, well-perfused. No calf tenderness. No peripheral edema. NEUROLOGICAL: Cranial nerves II-XII intact. Normal speech. Normal gait. PSYCHIATRIC: Cooperative. Good eye contact. Appropriate mood and affect. SKIN: Warm, dry, normal turgor. LABS Laboratory Results - last 24 hr 11/03/19 11/03/19 11/04/19 16:48 20:09 06:22 WBC RBC Hgb Hct MCV MCH MCHC RDW Plt Count MPV Absolute Neuts (auto) Neutrophils % Lymphocytes % Monocytes % Eosinophils % Basophils % Sodium Potassium Chloride Carbon Dioxide Anion Gap BUN Creatinine Est GFR (CKD-EPI)AfAm Est GFR (CKD-EPI)NonAf POC Glucometer 238 276 190 Random Glucose Calcium Magnesium Total Bilirubin AST ALT Alkaline Phosphatase Total Protein Albumin 11/04/19 11/04/19 07:33 07:33 WBC 6.9 RBC 4.48 Hgb 13.8 Hct 40.2 MCV 89.8 MCH 30.8 MCHC 34.3 RDW 12.8 Plt Count 205 MPV 10.1 Absolute Neuts (auto) 2.2 Neutrophils % 32.1 L D Lymphocytes % 53.0 H Monocytes % 6.7 Eosinophils % 7.5 H Basophils % 0.7 Sodium 139 Potassium 3.5 Chloride 109 H Carbon Dioxide 26 Anion Gap 4 L BUN 27.0 H Creatinine 1.1 Est GFR (CKD-EPI)AfAm 85.91 Est GFR (CKD-EPI)NonAf 74.12 POC Glucometer Random Glucose 176 H Calcium 8.8 Magnesium 1.9 Total Bilirubin 0.7 AST 18 ALT 19 Alkaline Phosphatase 43 L Total Protein 6.4 Albumin 3.5 HOSPITAL COURSE: Date of Admission:11/02/19 Date of Discharge: 11/04/19 Pre hospital course Patient is a 59 year-old male with a PMH significant for HTN, HLD, Type II NIDDM , asthma, bicuspid aortic valve, and seizure disorder. Patient reports feeling ill since July 2019 when he experienced flu-like symptoms. Since that time he has become increasingly short of breath and dyspneic on exertion. He has become acutely worse over the past several weeks, has had o sleep sitting up and is unable to climb stairs at work without becoming profoundly short of breath. Patient went to see his PCP who ordered an xray. Patient received a call from PCP advising him to come to the ED. Denies fever, sweats, chills. Denies chest pain, palpitations, lightheadedness, lower extremity edema. 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), daily vaping for past 3 years --11/02 CT chest: extensive chronic interstitial lung disease, marked in the RUL, worse since 2012 --treated with antibiotics, azithro x 4 doses, ceftriaxone x 4 doses; discharge on augmentin --sats 94% on room air at rest; 87% on room air with flat surface ambulation ; requires 2L of oxygen continuous flow to restore an oxygen saturation of 94% --continued Symbicort, Advair, duonebs PRN Type II NIDDM --HgbA1C 8.9 --Novolog sliding scale coverage Heart failure, NOS --Echo done --continue home regimen PO lasix --on daily ASA Bicuspid aortic valve --echo done Elevated creatinine --Cr 1.6 in ED, this morning 1.3, Hypertension --continued ToprolXL Hyperlipidemia --continued atorvastatin Seizure disorder --stable --continued Topamax Minutes to complete discharge: 35 Discharge Summary Problems reviewed: Yes Reason For Visit: BILATERAL PNUEMONIA Current Active Problems Bilateral pneumonia (Acute) Condition: Stable - Instructions Diet, Activity, Other Instructions: Patient's saturates at 94% on room air at rest. He saturates at 87% on room air with flat surface ambulation. He requires 2L of oxygen by NC to restore an oxygen saturation of 94%. Referrals: Lina Pacheco MD [Primary Care Provider] - 1 Week Rei Fry MD [Staff Physician] - 1 Week - Home Medications Comprehensive Discharge Medication List: Ambulatory Orders Albuterol Sulfate Inhaler - [Ventolin HFA Inhaler -] 1 - 2 inh PO QID 11/02/19 Albuterol Sulfate [Proair Hfa] 8.5 gm IH DAILY 11/02/19 Aspirin 81 mg PO DAILY 11/02/19 Atorvastatin Ca [Lipitor] 40 mg PO HS 11/02/19 Budesonide/Formeterol Fumarate [SYMBICORT 160/4.5mcg -] 1 inh PO DAILY 11/02/19 Cholecalciferol (Vitamin D3) [Vitamin D -] 500 unit PO DAILY 11/02/19 Furosemide [Lasix] 80 mg PO DAILY 11/02/19 Glipizide [Glipizide ER] 10 mg PO DAILY 11/02/19 Icosapent Ethyl [Vascepa] 2 gm PO BID 11/02/19 Metformin HCl [Glucophage] 1,000 mg PO DAILY 11/02/19 Metoprolol Succinate [Toprol Xl] 25 mg PO DAILY 11/02/19 Salmeterol/Fluticasone [Advair 100Mcg/50Mcg -] 1 inh PO BID 11/02/19 Topiramate 150 mg PO HS 11/02/19 This patient is new to me today: No Emergency Visit: Yes ED Registration Date: 11/02/19 Care time: The patient presented to the Emergency Department on the above date and was hospitalized for further evaluation of their emergent condition. Critical Care patient: No - Discharge Referral Referred to [facility] Med P.C.: No
[2019-11-04 13:47] VITALS: BP 101/61; PULSE 80; TEMP 98.5
--- NOTE | 2019-11-04 14:26 | ECHO ---
Name: DUDLEY GONZALEZ Exam:Adult Echocardiogram Study Date: 11/04/2019 01:45 PM Age: 59 yrs Reason For Study: CHF Height: 70 in Weight: 298 lb BSA: 2.5 m2 MMode/2D Measurements & Calculations IVSd: 0.94 cm Ao root diam: 3.1 cm LVIDd: 5.6 cm LA dimension: 3.5 cm LVIDs: 3.5 cm LVPWd: 1.1 cm EDV(Teich): 152.8 ml LVOT diam: 2.0 cm ESV(Teich): 52.0 ml Doppler Measurements & Calculations MV E max clinton: 71.4 cm/sec MV A max clinton: 71.4 cm/sec MV dec slope: 425.2 cm/sec2 MV E/A: 1.0 Ao V2 max: 255.5 cm/sec LV V1 max P.9 mmHg Ao max P.1 mmHg LV V1 mean P.9 mmHg Ao V2 mean: 187.0 cm/sec LV V1 max: 85.2 cm/sec Ao mean P.5 mmHg LV V1 mean: 67.0 cm/sec Ao V2 VTI: 49.0 cm LV V1 VTI: 16.9 cm FRANKY(I,D): 1.1 cm2 FRANKY(V,D): 1.0 cm2 SV(LVOT): 53.1 ml TR max clinton: 222.4 cm/sec TR max P.8 mmHg PA V2 max: 128.2 cm/sec PA max P.6 mmHg Tech Comments BICUSPID AORTIC VALVE. Left Ventricle Ejection Fraction = 55-60%. The left ventricular ejection fraction is normal. Left Ventricular Fillin g pattern is normal for age. Right Ventricle The right ventricle is normal in size and function. Atria Normal left and right atrial size and function. Mitral Valve The mitral valve is grossly normal. There is no mitral valve stenosis. There is trace mitral regurgit ation. Tricuspid Valve The tricuspid valve is normal in structure and function. There is mild tricuspid regurgitation. Right ventricular systolic pressure is normal. Aortic Valve There is mild to moderate aortic valve thickening. Mild valvular aortic stenosis. No aortic regurgita tion is present. Pulmonic Valve The pulmonic valve is not well seen, but is grossly normal. There is no pulmonic valvular stenosis. T race pulmonic valvular regurgitation. Great Vessels The aortic root is normal size. Pericardium/Pleura There is no pericardial effusion. Interpretation Summary Mild valvular aortic stenosis. Ejection Fraction = 55-60%. The right ventricle is normal in size and function. There is trace mitral regurgitation. There is mild tricuspid regurgitation. Right ventricular systolic pressure is normal. The aortic root is normal size. There is no pericardial effusion. MD Wallace *Marsha 11/04/2019 02:26 PM
--- NOTE | 2019-11-04 16:44 | PN ---
Progress Note (short form) - Note Progress Note: s: no chest pain, palps, dizziness, dyspnea. Current Medications Generic Name Dose Route Start Last Admin Trade Name Freq PRN Reason Stop Dose Admin Albuterol/Ipratropium 1 amp 11/02/19 23:31 Duoneb - NEB Q4H PRN SHORTNESS OF BREATH Aspirin 81 mg 11/02/19 10:00 11/04/19 09:48 Asa - PO 81 mg DAILY NANDO Administration Atorvastatin Calcium 40 mg 11/02/19 22:00 11/03/19 21:16 Lipitor - PO 40 mg HS NANDO Administration Furosemide 80 mg 11/02/19 10:00 11/04/19 09:48 Lasix - PO 80 mg DAILY NANDO Administration Heparin Sodium (Porcine) 5,000 unit 11/03/19 06:00 11/04/19 14:26 Heparin - SQ 5,000 unit TID NANDO Administration Ceftriaxone Sodium 1 gm/ 50 mls @ 100 mls/hr 11/02/19 22:00 11/03/19 21:17 Sodium Chloride IVPB 100 mls/hr DAILY@2200 NANDO Administration Protocol Azithromycin 500 mg/ Sodium 250 mls @ 250 mls/hr 11/02/19 22:00 11/03/19 21: 42 Chloride IVPB 250 mls/hr DAILY@2200 NANDO Administration Insulin Aspart 0 units 11/02/19 11:00 11/04/19 12:02 Novolog Vial SQ 6 units ACHS NANDO Administration Protocol Metoprolol Succinate 25 mg 11/02/19 10:00 11/04/19 09:48 Toprol Xl - PO 25 mg DAILY NANDO Administration [id number] Ethyl Esters 2 gm 11/03/19 10:00 11/04/19 09:48 Lovaza - PO 2 gm BID NANDO Administration Fluticasone/Salmeterol 1 puff 11/02/19 13:30 11/04/19 11:00 Advair 100mcg/50mcg - IH 1 puff BID NANDO Administration Topiramate 50 mg 11/02/19 10:00 11/04/19 09:47 Topamax - PO 50 mg DAILY NANDO Administration Vital Signs Period Temp Pulse Resp BP Sys/King Pulse Ox Last 24 Hr 97.2 F-98.5 F 64-93 18-19 95-122/57-65 89-98 nad no jvd rrr s1s2 no mrg cta bl nl eff aao3 no le e/c/c abd nt nd pos bs no jaundice diaphoreis pos dp pt no carotid bruits CBC, BMP 11/04/19 07:33 11/04/19 07:33 ecg: sr nl intervals no ischemic changes ct chest: no chf, +ILD a/p: 59 m hx asthma, htn, hld, dchf, bicuspid av, dm sent by pmd for abnl cxr. pna, ILD: -abx per primary -echo here unremarkable htn: -cont bb hld: -cont statin chronic chf: -stable vol status, cont po lasix bicuspid av: -echo unremarkable, outpt f/u
--- NOTE | 2019-11-04 17:20 | CON.PULM ---
Consult Consult Specialty:: PULMONARY Referred by:: PMDeion Reason for Consultation:: SOB - History of Present Illness Chief Complaint: SOB History of Present Illness: The patient is a 59 year old male, with a significant PMH of asthma, untreated sleep apnea, [id number] diabetes, elevated cholesterol, bicuspid aortic valve with small aneurysm of the aorta who presents to the emergency department sent by his PCP for abnormal X-ray images. As per patient he began to feel flu-like symptoms at the end of August after receiving the flu-shot. Patient reports he has been feeling sick since then, mainly complaining of a productive cough of green phlegm that has been constant since the end of August, along with shortness of breath. Patient reports that he saw his PCP last week and had an outpatient Xray done. He reports that his PCP called him today advising him to go to the ED for a work-up, due to abnormal Xray results. Patient has been a longtime smoker than quit three years ago and began to vape nicotine. 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 I have asked him to supply the MSD on the product he uses. He will be followed by Dr. Fry as an outpatient. - History Source History Provided By: Patient, Family Member, Medical Record Limitations to Obtaining History: No Limitations - Past Medical History [employer]: No: Alzheimer's Cardio/Vascular: Yes: HTN, Pulmonary Hypertension. No: AFIB, CAD Pulmonary: Yes: Asthma, COPD, Pneumonia, Pulmonary Fibrosis. No: O2 Dependent, Pulmonary Embolus Gastrointestinal: No: Ascites Hepatobiliary: No: Cirrhosis Renal/: No: Renal Failure Heme/Onc: No: Anemia - Alcohol/Substance Use Hx Alcohol Use: No - Smoking History Smoking history: Former smoker Have you smoked in the past 12 months: No Aproximately how many cigarettes per day: 40 If you are a former smoker, when did you quit?: 2013 Home Medications - Allergies Allergies/Adverse Reactions: Allergies Allergy/AdvReac Type Severity Reaction Status Date / Time mite-Dermatophagoides Allergy Verified 11/02/19 02:02 farinae, mamadou DUST MITES Allergy Uncoded 09/15/18 11:09 ROACHES Allergy Uncoded 09/15/18 11:09 - Home Medications Home Medications: Ambulatory Orders Albuterol Sulfate Inhaler - [Ventolin HFA Inhaler -] 1 - 2 inh PO QID 11/02/19 Albuterol Sulfate [Proair Hfa] 8.5 gm IH DAILY 11/02/19 Aspirin 81 mg PO DAILY 11/02/19 Atorvastatin Ca [Lipitor] 40 mg PO HS 11/02/19 Budesonide/Formeterol Fumarate [SYMBICORT 160/4.5mcg -] 1 inh PO DAILY 11/02/19 Cholecalciferol (Vitamin D3) [Vitamin D -] 500 unit PO DAILY 11/02/19 Furosemide [Lasix] 80 mg PO DAILY 11/02/19 Glipizide [Glipizide ER] 10 mg PO DAILY 11/02/19 Icosapent Ethyl [Vascepa] 2 gm PO BID 11/02/19 Metformin HCl [Glucophage] 1,000 mg PO DAILY 11/02/19 Metoprolol Succinate [Toprol Xl] 25 mg PO DAILY 11/02/19 Salmeterol/Fluticasone [Advair 100Mcg/50Mcg -] 1 inh PO BID 11/02/19 Topiramate 150 mg PO HS 11/02/19 Amox-Tr/K Cl [Augmentin - 875Mg Tablet] 1 tab PO BID #6 tablet 11/04/19 Azithromycin 250 mg PO ONCE #1 tablet 11/04/19 Family Medical History Family History: Unremarkable Review of Systems - Review of Systems Constitutional: denies: Chills, Fever Eyes: denies: Blurred Vision HENT: denies: Difficult Swallowing Neck: denies: Decreased ROM Cardiovascular: denies: Chest Pain Respiratory: reports: Cough, Exercise Intolerance, Orthopnea, SOB, SOB on Exertion, Wheezing. denies: Hemoptysis Gastrointestinal: denies: Abdominal Pain Genitourinary: denies: Burning Physical Exam Vital Sings: Vital Signs Temperature 98.5 F 11/04/19 13:45 Pulse Rate 80 11/04/19 13:45 Respiratory Rate 19 11/04/19 13:45 Blood Pressure 101/61 11/04/19 13:45 O2 Sat by Pulse Oximetry (%) 98 11/04/19 13:45 Constitutional: Yes: Calm Eyes: Yes: EOM Intact HENT: Yes: Normocephalic Neck: Yes: Trachea Midline Cardiovascular: Yes: Regular Rate and Rhythm Respiratory: Yes: Rales (chronic sounding crackles) Gastrointestinal: Yes: Normal Bowel Sounds Extremities: Yes: WNL Edema: No Psychiatric: Yes: WNL Labs: CBC, BMP 11/04/19 07:33 11/04/19 07:33 rest reviewed Imaging - Results Chest X-ray: Report Reviewed, Image Reviewed Cat Scan: Report Reviewed, Image Reviewed Problem List - Problems (1) ILD (interstitial lung disease) Code(s): J84.9 - INTERSTITIAL PULMONARY DISEASE, UNSPECIFIED (2) COPD (chronic obstructive pulmonary disease) Code(s): J44.9 - CHRONIC OBSTRUCTIVE PULMONARY DISEASE, UNSPECIFIED Assessment/Plan PATIENT HAS ILD OF UNKNOWN ETIOLOGY. POSSIBLY RELATED TO HIS OCCUPATIONAL EXPOSURE. HE WILL HAVE A WORKUP AN OUTPATIENT WHICH WILL LIKELY INCLUDE A LUNG BIOPSY. 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
[2019-11-05 14:07] LABS: MICROALBUMIN/CREATININE RATIO 5.1 mg/g creat (0.0-30.0)
== END 2019-11-04 17:31 | disposition home or self-care (01) | DRG 197 ==
LOC: FER 21:17 → FM/S 11-02 01:53
PROVIDERS: ADMIT Internal Medicine; ATTEND Nurse Practitioner Acute Care
DX: J84.9 Interstitial pulmonary disease, unspecified (principal); I50.32 Chronic diastolic (congestive) heart failure; J44.1 Chronic obstructive pulmonary disease with (acute) exacerbation; J45.901 Unspecified asthma with (acute) exacerbation; Z68.41 Body mass index [BMI] 40.0-44.9, adult; I11.0 Hypertensive heart disease with heart failure; E78.5 Hyperlipidemia, unspecified; E11.9 Type 2 diabetes mellitus without complications; E66.9 Obesity, unspecified
CPT/HCPCS: 36415; 71046-TC-FY; 71250-TC; 80048; 80053; 81003; 82043; 82550; 82570; 82962; 83036; 83605; 83735; 83880; 84484; 85025; 87040; 87804; 87899; 93005; 93306-TC; 99282-25; J1644

== ENCOUNTER 2021-11-06 15:29 | Emergency (ER) | payer BC, OTHER ==
[2021-11-06 15:49] VITALS: BP 104/65; PULSE 73; TEMP 97.4; BMI 32.1
[2021-11-06] MEDS ORDERED: ACETAMINOPHEN 325 MG TABLET (FP) PO ONE (18:03)
[2021-11-06] MEDS ORDERED: ACETAMINOPHEN 325 MG TABLET (FP) ONE (18:12)
== END 2021-11-06 18:19 | disposition home or self-care (01) ==
LOC: FER 15:29
DX: S42.291A Other displaced fracture of upper end of right humerus, initial encounter for closed fracture (principal); W01.0XXA Fall on same level from slipping, tripping and stumbling without subsequent striking against object, initial encounter
CPT/HCPCS: 73030-TC-RT-FY; 99283-25